=== PATIENT | female | born 1975 | race Caucasian/White ===

== ENCOUNTER 2016-04-09 18:24 | Emergency (ER) | payer MEDICARE ==
[2016-04-09] MEDS ORDERED: FAMOTIDINE 20 MG INJ ONE (18:42)
[2016-04-09] MEDS ORDERED: DEXAMETHASONE 4 MG/ML VIAL ONE (18:42)
== END 2016-04-09 20:58 | disposition home or self-care (01) ==
LOC: ER 18:24
DX: T78.2XXA Anaphylactic shock, unspecified, initial encounter (principal); J38.3 Other diseases of vocal cords
CPT/HCPCS: 36415; 36600; 71010; 80053; 82803; 85025; 96374; 96375